=== PATIENT | female | born 1995 | race Caucasian/White ===

== ENCOUNTER 2022-07-11 23:18 | Emergency (ER) | payer MEDICAID ==
[~2022-07-11] VITALS: Ht 160 cm; Wt 78.9 kg
[2022-07-11 23:41] VITALS: BP 122/73
--- NOTE | 2022-07-11 23:51 | NUR ---
WALKED IN C/O VAGINAL BUMPS X1 WEEK, +REDNESS, +DYSURIA. PT REPORTS RECENT UNPROTECTED SEX AND A HX OF GENITAL HERPES 4 YEARS AGO. PT REPORTS BUYING HERPES MEDICATION OTC. PMH NONE.
--- NOTE | 2022-07-12 00:10 | NUR ---
DR. RANGEL IN TRIAGE FOR MSE
[2022-07-12] MEDS ORDERED: ACYC400T14 PO (00:19)
--- NOTE | 2022-07-12 00:24 | NUR ---
Patient discharged with v/s stable. Written and verbal after care instructions given and explained. Patient alert, oriented and verbalized understanding of instructions. Ambulatory with steady gait. All questions addressed prior to discharge. ID band removed. Patient advised to follow up with PMD. Rx of ACYCLOVIR given. Patient educated on indication of medication including possible reaction and side effects. Opportunity to ask questions provided and answered.
[2022-07-12 00:32] VITALS: BP 122/73
== END 2022-07-12 00:24 | disposition home or self-care (01) ==
LOC: MED 23:18
DX: R10.2 Pelvic and perineal pain (principal); Z79.899 Other long term (current) drug therapy
CPT/HCPCS: 81002; 81025; 99283